=== PATIENT | male | born 1940 | race Two or more races ===

== ENCOUNTER 2023-01-29 21:27 | Inpatient (IN) | payer MEDICARE, OTHER ==
[~2023-01-29] VITALS: Ht 167.6 cm; Wt 72.6 kg
--- NOTE | 2023-01-29 21:46 | NUR ---
PT IN BED 12 A/O X3 BREATHING IS EVEN AND UNLABORED AT THIS TIME. C.O CHEST PAIN, AB PAIN, RADIATING TO RIGHT ARM. UPON ARRIVAL TO HOSPITAL PT STATES THAT HIS CHEST AND ARM NO LONGER HURT REPORTS 0/10. VITAL ARE WNL 119/69
--- NOTE | 2023-01-29 21:56 | NUR ---
RFA #20G S/L BLOOD AND COVID ANTIGEN SWAB COLLECTED AND SENT TO LAB
[2023-01-29 22:08] LABS: BASOPHILS % (AUTO) 0.2 % (0.0-2.0); EOSINOPHILS % (AUTO) 0.5 % (0.0-6.0); HEMATOCRIT 41 % (39-51); HEMOGLOBIN 13.3 g/dL (13.5-17.5); LYMPHOCYTES # (AUTO) 6.1 K/uL (0.8-4.8); MEAN CORPUSCULAR HGB CONC 33 g/dl (31.0-36.0); MEAN CORPUSCULAR VOLUME 90 fL (80-96); MONOCYTES # (AUTO) 0.9 K/uL (0.1-1.30); NEUTROPHILS # (AUTO) 3.9 K/uL (1.8-8.9); NEUTROPHILS % (AUTO) 35.3 % (43.0-81.0); PLATELET COUNT (AUTO) 107 K/uL (150-450); RED BLOOD CELL COUNT(AUTO) 4.52 MIL/uL (4.5-6.0)
--- NOTE | 2023-01-29 22:08 | NUR ---
CIGARETTE INSPECTOR AT PT'S BEDSIDE
[2023-01-29 22:19] LABS: CALCIUM, SERUM 9.1 mg/dL (8.5-10.1); CARBON DIOXIDE 26 mmol/L (21-32); CHLORIDE 103 mmol/L (98-107); CREATININE 1.4 mg/dL (0.6-1.3); GLUCOSE 152 mg/dL (74-106); POTASSIUM 3.9 mmol/L (3.5-5.1); SODIUM SERUM 139 mmol/L (136-145); UREA NITROGEN, BLOOD 22 mg/dL (7-18)
--- NOTE | 2023-01-29 22:21 | NUR ---
PT TAKEN TO CT VIA [facility]
--- NOTE | 2023-01-29 22:36 | NUR ---
DR CONRAD ON THE PHONE WITH DR JOSAFAT PEDROZA, HOSPITALIST
--- NOTE | 2023-01-29 23:09 | NUR ---
HAND OFF REPORT GIVEN TO PEPE VANG FOR INPATIENT SERVICES.
--- NOTE | 2023-01-29 23:55 | NUR ---
TRANSFERRED TO THIRD FLOOR UNDER ACLS
--- NOTE | 2023-01-29 23:55 | NUR ---
[facility] able to ambulate to bed. AOx4, able to make needs known. On RA and tolerating well. No SOB noted. No s/sx of respiratory distress noted. Tele monitor detects A-pacing with rate of 60. IV access in RFA #20G. IV is intact, patent, and flushing well. Safety precautions in place: bed in lowest, locked position, siderails upX2, and brakes on. Table and call light within reach. All needs met at this time.
[2023-01-30 00:32] LABS: BLASTS, MANUAL % 1 % (0-0); LYMPHOCYTES % (MANUAL) 65 % (16-48); MONOCYTES % (MANUAL) 4 % (0-11.0); NEUTROPHILS % (MANUAL) 29 (42-76); REACTIVE LYMPHOCYTES 1 % (0-0)
[2023-01-30] MEDS ORDERED: Z GUARD REMEDY 4 OZ OINT TP PRN (01:30)
[2023-01-30] MEDS ORDERED: MORPHINE SULFATE INJ 2 MG/ML DISP.SYRIN IV PRN (01:30)
[2023-01-30] MEDS ORDERED: ONDANSETRON HCL/PF 4 MG/2 ML VIAL IVP PRN (01:30)
[2023-01-30] MEDS ORDERED: ACETAMINOPHEN 325 MG TABLET PO PRN (01:30)
--- NOTE | 2023-01-30 07:02 | NUR ---
RN Closing Notes Pt in bed, awake. AOx4, able to make needs known. On RA and tolerating well. No SOB noted. No s/sx of respiratory distress noted. Tele monitor detects A-pacing with rate of 60. IV access in RFA #20G. IV is intact, patent, and flushing well. All orders carried out. All needs met. Pt kept clean and dry. No complaints of chest pain.Will endorse to oncoming shift for CARLINE.
--- NOTE | 2023-01-30 07:05 | NUR ---
RN Closing Notes Pt in bed, awake. AOx4, able to make needs known. On RA and tolerating well. No SOB, pain nor distress noted. Tele monitor detects A-pacing with rate of 60. IV access in RFA #20G. IV C/D/I. Pt clean and dry. No complaints of chest pain. Will continue to monitor for CARLINE. Addendum: 01/30/23 at 0800 by BRIGIDA LEY JR, RN Opening notes
[2023-01-30 08:00] VITALS: BP 148/85
[2023-01-30] MEDS: ENOXAPARIN SODIUM 40 MG/0.4 ML DISP.SYRIN SQ SCH ×2 (08:56→09:00)
--- NOTE | 2023-01-30 11:16 | NUR ---
Twice checked, patient not ready yet for urine sample. Sterile urine cup provided. Patient aware urinalysis profile is needed prior to dc.
[2023-01-30] MEDS ORDERED: APIX2.5T PO (11:22)
[2023-01-30] MEDS ORDERED: GABA-532 PO (11:22)
[2023-01-30] MEDS ORDERED: SERT50TA12 PO (11:22)
[2023-01-30] MEDS ORDERED: ROSU10TA29 PO (11:22)
[2023-01-30] MEDS ORDERED: LORA-258 PO (11:22)
[2023-01-30] MEDS ORDERED: TAMS-12 PO (11:22)
[2023-01-30] MEDS ORDERED: AMLO2.5T4 PO (11:22)
[2023-01-30] MEDS ORDERED: ESOM40CA52 PO (11:22)
[2023-01-30] MEDS ORDERED: METO25TA20 PO (11:22)
[2023-01-30] MEDS ORDERED: METF-440 PO (11:22)
[2023-01-30] MEDS ORDERED: MIRT-90 PO (11:22)
[2023-01-30] MEDS ORDERED: AMIO200T5 PO (11:22)
[2023-01-30] MEDS ORDERED: OLAN2.5T3 PO (11:22)
[2023-01-30] MEDS ORDERED: POTA15TA11 PO (11:22)
[2023-01-30] MEDS ORDERED: SITA50TA PO (11:22)
[2023-01-30] MEDS ORDERED: LISI-768 PO (11:22)
[2023-01-30] MEDS ORDERED: DUTA0.5C37 PO (11:22)
[2023-01-30] MEDS ORDERED: PRAM0.258 PO (11:22)
[2023-01-30] MEDS ORDERED: TRAM50TA2 PO (11:24)
[2023-01-30 12:00] VITALS: BP 139/75
--- NOTE | 2023-01-30 14:30 | NUR ---
Patient discharged to home on stable condition, A/O x3, Trin[place]adian & north k[place] speaker, able to make needs known. Patient was breathing evenly and unlabored on room air, no signs of pain nor any distress noted at the time. Patient was given discharge instructions both verbally and in writing. All belongings accounted for. Patients IV access removed, C/D/I. patient was picked up by his grandson and left the [facility] approximately 1410 onboard a private car
[2023-01-30 16:32] LABS: BILIRUBIN,URINE NEGATIVE (NEGATIVE); COLOR,URINE YELLOW (YELLOW); LEUKOCYTE ESTERASE ,URINE NEGATIVE (NEGATIVE); NITRITE, URINE NEGATIVE (NEGATIVE); PROTEIN,URINE NEGATIVE (NEGATIVE); UGLUCOSE NEGATIVE (NEGATIVE); UROBILINOGEN,URINE 0.2 EU/dL (0.2)
== END 2023-01-30 14:10 | disposition home or self-care (01) | DRG 311 ==
LOC: ER 21:28 → TELE 23:06
PROVIDERS: ADMIT Internal Medicine; ATTEND Internal Medicine
DX: I20.0 Unstable angina (principal); N17.0 Acute kidney failure with tubular necrosis; D68.59 Other primary thrombophilia; K86.2 Cyst of pancreas; D69.6 Thrombocytopenia, unspecified; I10 Essential (primary) hypertension; N40.0 Benign prostatic hyperplasia without lower urinary tract symptoms; Z20.822 Contact with and (suspected) exposure to COVID-19; Z95.0 Presence of cardiac pacemaker; I48.91 Unspecified atrial fibrillation; Z79.01 Long term (current) use of anticoagulants; E11.65 Type 2 diabetes mellitus with hyperglycemia; Z86.59 Personal history of other mental and behavioral disorders; N28.1 Cyst of kidney, acquired; K80.20 Calculus of gallbladder without cholecystitis without obstruction; M54.12 Radiculopathy, cervical region; D72.820 Lymphocytosis (symptomatic)
CPT/HCPCS: 36415; 71045-TC; 80048-TC; 84484-TC; 85025-TC; 87081-TC; 93307-TC; C9803; G0378; J1650